=== PATIENT | female | born 1945 | race Caucasian/White ===

== ENCOUNTER 2024-05-05 02:48 | Day surgery (SDC) | payer OTHER, SELFPAY ==
--- NOTE | 2024-05-04 08:39 | PC.NURSE ---
Report to the Outpatient Waiting Room, entrance under the green pavilion located off [facility], at time __0600 on date _05/05/24 . Planned Procedure Time: ___729 . Time changes happen often and if your time is changed the preop area will call you the afternoon before. - You and your visitor will be asked to self-screen and do not enter if you have any COVID symptoms. - A mask is optional within the hospital at this time. Patients may have clear liquids (water, carbonated beverages, clear teas, apple juice) until 3 hours prior to surgery( 4:30 AM) with a maximum of 20 ounces. - No food from midnight until time of surgery - Infants may have breast milk until 4 hours before surgery, infant formula 6 hours prior to surgery. - Children will be allowed to drink immediately following surgery. If applicable, please bring a bottle or sippy cup to assist with drinking. Juice, water, soda, and popsicles are readily available. For infants on formula, please bring formula the day of surgery. Pacifiers are allowed. Take the following medications with a SIP of water the morning of surgery: __CARVEDILOL DO NOT STOP ANY OF YOUR OTHER PRESCRIPTION MEDICATIONS PRIOR TO SURGERY ?EXCEPT THE FOLLOWING Medications to discontinue per physician __LAST DOSE VITAMINS AND SUPPLEMENTS 05/04/24 Please no make-up, nail citizen of [place], hairspray, perfume, deodorant, or body powder the day of surgery. No jewelry (including any body piercings) or valuables the day of surgery, leave them at home. Please take a shower or bath the night before, or the morning of, surgery with an antibacterial soap. Wear comfortable, loose fitting clothing. Children are encouraged to wear pajamas. - Jewelry must be removed prior to entering the operating room. Rings and piercings that are not removed may be cut off. - The hospital will not accept responsibility for valuables. - Please leave all valuables, including medications, at home the day of surgery. If you are going home after surgery, a licensed transportation driver must drive you home. - NO public transportation without another adult if you receive anesthesia. - We recommend that an adult stay with you for 24 hours following discharge. - We also recommend that you do not drive, make important decision, drink alcoholic beverages, or take any drugs that were not prescribed by your health care provider for at least 24 hours after your discharge time Follow any additional instructions given to you from your surgeon. If you or anyone in your household have experienced Covid symptoms in the past week, please notify your surgeon or the nurse liaison at the phone number below for possible testing. Telephone instructions given to ___PATIENT and asked if any additional questions and then verbalized understanding. Patient advised to call surgeon office or pre surgery nurse liaison [phone] if any additional questions.
[2024-05-04 08:46] VITALS: BMI 25.1
[2024-05-05] VITALS (23 sets, daily range): BP systolic 125–183; BP diastolic 50–93; PULSE 57–82; RESP 10–18; TEMP 36.2–36.3; O2SAT 91–99
--- NOTE | 2024-05-05 05:56 | ECG_ITS ---
Test Date: 2024-05-05 06:47:11 Measurements Intervals [place] Rate: 58 P: 49 WI: 193 QRS: -46 QRSD: 121 T: -15 QT: 437 QTc: 430 Interpretive Statements SINUS BRADYCARDIA LEFT ANTERIOR FASCICULAR BLOCK LEFT VENTRICULAR HYPERTROPHY BORDERLINE ST-T WAVE ABNORMALITY- ANTEROLAT/INF LEADS ABNORMAL ECG No previous ECG available for comparison Electronically Signed On 05-05-2024 07:22:11 CDT by Martin Morrison D.O.
[2024-05-05] MEDS: LACTATED RINGERS 1,000 ML 30 ML IV CONT ×2 (06:40→10:43)
--- NOTE | 2024-05-05 06:54 | WPDANESEPPF ---
Anes - Initial Pre Proc Eval Procedure: Operation Date: 05/05/24 07:30 Proposed Procedures p Neck Lift - Jesus Garcia MD Date/Time: 05/05/24 06:54 Surgeon: Jesus Garcia MD Pre Op Diagnosis: Skin Laxity Patient Data Age: 78 Gender: F Height: 1.6 m Weight: 64.45 kg Allergies Allergy/AdvReac Type Severity Reaction Status Date / Time Sulfa (Sulfonamide Allergy Mild SWELLING Verified 05/04/24 08:20 Antibiotics) Home Medications Medication Instructions Recorded Confirmed Type carvedilol 25 mg tablet 25 mg PO BID 05/04/24 05/04/24 History cholecalciferol (vitamin D3) 50 50 mcg PO DAILY 05/04/24 05/04/24 History mcg (2,000 unit) tablet cyanocobalamin (vitamin B-12) 1,000 mcg PO DAILY 05/04/24 05/04/24 History 1,000 mcg capsule ezetimibe 10 mg tablet 10 mg PO QAM 05/04/24 05/04/24 History hydrochlorothiazide 12.5 mg capsule 12.5 mg PO QAM 05/04/24 05/04/24 History multivit with minerals-iron 18 1 tablet PO DAILY 05/04/24 05/04/24 History mg-folic ac 400 mcg-vit K 25 mcg tablet (Adults Multivitamin) olmesartan 40 mg tablet 40 mg PO QAM 05/04/24 05/04/24 History potassium chloride 10 mEq 20 meq PO QNOON 05/04/24 05/04/24 History tablet,extended release(part/cryst) zinc 50 mg capsule 50 mg PO DAILY 05/04/24 05/04/24 History Laboratory Tests 05/05/24 06:42 Sodium Pending Potassium Pending Chloride Pending Carbon Dioxide Pending Anion Gap Pending BUN Pending Creatinine Pending Estim Creat Clear Calc Pending Estimated GFR Pending Glucose Pending Calcium Pending Patient hx anesthesia problems: none Family hx anesthesia problems: none Results Review: All pre-operative results and documents have been reviewed as part of the pre-operative evaluation. 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 HTN (hypertension) Surgical History Surgical History (Updated 05/05/24 @ 06:56 by Derik Evans MD) H/O: hysterectomy History of total hip arthroplasty Social History Social History Smoking packs per day: 0.5 Smoking cigarettes per day: 10.0 Years smoked: 10 Smoking pack-years: 5.00 Smoking status: Former smoker Tobacco type: cigarettes Smoking end date: 10/14/69 Alcohol intake: current Drinks per week: 7 Alcohol use details: WINE Living arrangements: with family Spiritual care concerns: No Anes - Eval Final PreProcedure Day of Procedure 05/05/24 06:54 Patient weight: normal Heart: regular rate and rhythm Lungs: clear to auscultation Airway: Mallampati scale class II Neurological: alert and oriented Last oral intake: >/= 8 hours ASA classification: II Emergent: no Anesthetic plan: proceed Anesthesia type and monitoring: general ETT and standard monitoring Results Review: All pre-operative results and documents have been reviewed as part of the pre-operative evaluation. Informed Consent: The patient's anesthetic plan and its attendant risks and benefits were discussed with the patient/family/POA. Questions were solicited and answers provided to the satisfaction of the patient/family/POA.
[2024-05-05 06:59] LABS: Anion Gap 10 mmol/L (4-12); Blood Urea Nitrogen 15 mg/dL (7-17); Calcium 9.3 mg/dL (8.4-10.2); Carbon Dioxide 33 mmol/L (22-30); Chloride 90 mmol/L (98-107); Estimated CRCL calculation 54 ml/min; Estimated Glomerular Filt Rate > 60; Glucose 95 mg/dL (65-110); Potassium 3.8 mmol/L (3.4-5.0); Sodium 133 mmol/L (137-145)
--- NOTE | 2024-05-05 07:18 | WPDHPUPDATE1 ---
History and Physical Update Update Date/Time: 05/05/24 07:18 History and Physical has been reviewed, including an updated exam of the patient. There are NO changes in the patient's condition. Risks, benefits, and alternatives have been discussed and questions answered. Patient agrees to proceed with procedure.
--- NOTE | 2024-05-05 07:18 | W.PM.PROC2 ---
Procedure Note - Detailed Date of Procedure 05/05/24 Pre-op Diagnosis Skin Laxity Post-op Diagnosis Same Procedure Performed Cervicoplasty Surgeon Jesus Garcia MD Anesthesia General Indications She would like to proceed with neck lift. We advised this will create an imbalance with her face (as she has declined face lift) and there will be persistent jowling. Further she understands this may not improve her rashes that she is getting with her lower neck. Again today we discussed realistic expectations of outcome and what we can and can not accomplish. They were able to repeat this back and would like to proceed. Description of Procedure Preoperatively the risks, benefits, alternatives were discussed in extensive detail. I want her to be very realistic about the risks involved as well as expectations. Reviewed what we can and cannot accomplish. Realistic expectations of outcome. All questions were answered to satisfaction. Consent obtained. Taken to the operating room placed supine on the operating room table. Anesthesia provided by anesthesiology. Surgical time-out was taken. Tube sutured into place to the first Incisor. Prepped and draped in standard sterile fashion. Local anesthesia was provided with a tumescent solution using lidocaine, epinephrine, and TXA. Once adequate time for effect a fifteen blade used to make a submental incision. Dissection was continued down identified platysma muscle. Elevated skin flaps with good adiposity of the deep surface throughout the neck just what was necessary centrally. I then proceeded sub platysmal and elevated bilateral. Minimal central adiposity was removed (staying well superficial to the digastric muscle) A small platysmal backcut was completed inferior to the Hyoid transversely. Platysma muscle was repair centrally with 2-0 Vicryl. I then proceeded made the remainder of the incisions. I elevated skin flaps with good adequate adiposity of the deep surface to have good contour. This was continued for all the areas necessary. I then incised the platysma at the anterior border of the sternocleidomastoid and elevated what was necessary to provide release with care taken to protect neurovascular structures). Created a short backup at the mandibular border with no evidence of injury to the marginal mandibular nerve. Created a mastoid crevasse along the anterior aspect of the mastoid and the platysma was secured with 2-0 Ethibond. Irrigated before and after with Betadine solution. There was no evidence of nerve injury throughout the procedure. Copious irrigated with saline solution and verified strict hemostasis. The skin flaps were just placed into position without any tension. Trimmed as necessary. Preauricular was closed with 5-0 nylon. Postauricular with 5-0 chromic. Submental was closed using 3-0 Monocryl followed by running subcuticular 4-0 Monocryl and tissue glue. Hemostatic net placed with 3-0 Nylon. Dressings were placed. Patient was awoken without difficulty. All instrument sponge counts were correct at the end of the case. Estimated Blood Loss 25 Drains No Packing No Pathology None sent Complications No immediate complications Condition Stable Disposition PACU
[2024-05-05] MEDS: ceFAZolin 2 GM/D5W 50 ML 2 GM/50 ML BAG IVPB (07:26)
[2024-05-05] MEDS: TRANEXAMIC ACID 1,000MG/ISO100 1,000 MG/100 ML BAG 200 MG IVPB (07:26)
[2024-05-05] MEDS: NACL 0.9% IRRIG POUR BOTTLE 900 ML, GENTAMICIN SULFATE INJ 160 MG, ceFAZolin 2 GM, POVI... IRRIGATION (08:02)
[2024-05-05] MEDS: NACL 0.9% INFILTRATE (08:03)
[2024-05-05] MEDS: LIDOCAINE HCL 1% INFILTRATE (08:03)
[2024-05-05] MEDS: [UNRECOGNIZED DRUG - OTHER] INFILTRATE (08:03)
[2024-05-05] MEDS: BACITRACIN OINTMENT 15 GM TUBE 1 APPLIC TOPICAL (10:27)
[2024-05-05] MEDS: fentaNYL CITRATE INJ (*CRX) 100 MCG/2 ML VIAL 25 MCG IV PUSH ×6 (11:09→14:00)
--- NOTE | 2024-05-05 12:39 | SUR.PHASEI ---
Patient is unable to maintain O2 sats above 90% on room air. RN has tried to wean O2 a few times in recovery. Dr. Evans is aware.
[2024-05-05] MEDS: hydrALAZINE HCL 20 MG/ML VIAL 5 MG IV PUSH ×2 (14:31→14:43)
--- NOTE | 2024-05-05 15:06 | SUR.PHASEI ---
Pt at 1505 left PACU. Was able to maintain O2 for 55 minutes in the PACU. Sent her to OP recovery.
[2024-05-05] MEDS: oxyCODONE HCL (*CRX) 5 MG TAB IR PO (15:21)
== END 2024-05-05 16:00 | disposition home or self-care (01) ==
PROVIDERS: PCP Family Medicine Sports Medicine; Visit Provider Surgery Plastic and Reconstructive Surgery
PROC: (CPT 15819; principal; 2024-05-05 07:30)
DX: Z41.1 Encounter for cosmetic surgery (principal); L57.4 Cutis laxa senilis; I10 Essential (primary) hypertension; Z98.1 Arthrodesis status; Z87.891 Personal history of nicotine dependence
CPT/HCPCS: 15819; 36415; 80048; 93005; A9270; J0171; J0330; J0360; J0690; J1100; J1170; J1580; J2250; J2405; J2704; J3010; J7030; J7120